=== PATIENT | female | born 1935 | race Caucasian/White ===

== ENCOUNTER 2020-02-08 16:21 | Emergency (ER) | payer MEDICARE, SELFPAY ==
[2020-02-08 16:53] VITALS: BP 160/77; PULSE 105; RESP 18; TEMP 36.2; O2SAT 95; BMI 34.5
--- NOTE | 2020-02-08 17:08 | ED_ITS ---
HPI - Female Genitourinary General: Chief complaint: Urogenital-Female Stated complaint: urination problems Time Seen by Provider: 02/08/20 17:06 Source: patient Mode of arrival: ambulatory Limitations: no limitations History of Present Illness: HPI Narrative: 84-year-old female comes in today with urinary incontinence. Patient states that she has been having difficulty for over 1 week now with urinary incontinence. Patient did recently get out of the hospital yesterday and comes in today due to persistent incontinence. Patient is requesting urinary catheterization to help with her bladder incontinence until she can get up and move around easier. Patient reports she has had to do this before in the past for similar complaints. Patient denies any fever nausea vomiting or other symptoms. Patient appears well. Patient appears in no pain. MD elicited complaint: urinary incontinence Review of Systems General: Reports: 10 or more systems reviewed and unremarkable except in HPI and below : Reports: urinary incontinence Physical Exam Const: COMMON NORMALS: no acute distress and patient oriented x3 GENERAL APPEARANCE: cooperative HENMT: COMMON NORMALS: normocephalic and Normal external nose present HEAD & SCALP: normal to inspection and normocephalic NOSE: Normal external nose present MOUTH: Normal oral and palatal mucosa present Eye: GENERAL EYE: appearance normal, both eyes and all related structures Neck/C-Spine: COMMON NORMALS: full ROM Chest: COMMONS NORMALS: normal inspection of the chest Resp: COMMON NORMALS: normal respiratory effort EFFORT & INSPECTION: Yes able to speak in complete sentences Cardio: COMMON NORMALS: regular rate and regular rhythm RATE: regular rate RHYTHM: regular rhythm GI: COMMON NORMALS: non-tender : COMMON NORMALS: Yes no CVA tenderness BLADDER/KIDNEY EXAM: Yes no CVA tenderness Back/Pelvis: COMMON NORMALS: no CVA tenderness and thoracic and lumbar spine normal to inspection Extremity: COMMON NORMALS: normal to inspection Neuro: COMMON NORMALS: patient oriented x3 and moves all extremities Psych: COMMON NORMALS: mental status grossly normal and cooperative Skin: COMMON NORMALS: no rashes or lesions noted GENERAL SKIN EXAM: no rashes or lesions noted Course Vital Signs: Vital signs: Vital Signs Temperature 97.1 F L 02/08/20 16:53 Pulse Rate 94 02/08/20 17:34 Respiratory Rate 18 02/08/20 17:34 Blood Pressure 158/71 02/08/20 17:34 Pulse Oximetry 94 02/08/20 17:34 MDM - Female MDM Narrative: Medical decision making narrative: Patient comes in today with dysuria and urinary incontinence. Patient reports an inability to control her bladder. Patient is requesting Mujica catheter placement until she is able to get up and around easier for her bladder incontinence. Patient recently got out of the hospital for a mild heart attack . Differential diagnosis includes but not limited to urinary retention, urinary incontinence, urinary tract infection. Urinalysis was clear of infection. Mujica catheter was placed for patient comfort. Patient is to follow-up with primary care in 1 week for bladder training and/or discontinuation of Mujica catheter. Patient agreed to plan and need for follow-up. Lab Data: Labs: Lab Results 02/08/20 Range/Units 17:20 Urine Color Yellow (Yellow) Urine Appearance Sl hazy (CLEAR) Urine pH 5 (5-7) Ur Specific Gravit y 1.005 (1.005-1.030) Urine Protein Neg (Negative) Urine Glucose (UA) 4+ H (Normal) Urine Ketones Negative (Negative) Urine Blood 3+ H (Negative) Urine Nitrate Negative (Negative) Urine Bilirubin Neg (NEGATIVE) Urine Urobilinogen Norm (Negative) mg/dL Ur Leukocyte Leigh Ann ase Negative (Negative) Urine RBC 0-4 H (0-2) /hpf Urine WBC 5-10 H (0-5) /hpf Ur Squamous Epith Cells 15-25 H (0-5) Amorphous Sediment Not Reportable Urine Bacteria Trace (NONE) Hyaline Casts 0-4 H Discharge Plan Discharge Patient Disposition: Home Clinical Impression: Dysuria-frequency syndrome Condition: Stable Prescriptions: No Action atorvastatin 80 mg tablet 80 mg PO DAILY RF: 0 lisinopril 20 mg tablet 20 mg PO DAILY RF: 0 clopidogrel 75 mg tablet 75 mg PO DAILY RF: 0 amlodipine 5 mg tablet 5 mg PO DAILY RF: 0 tramadol 50 mg tablet 50 mg PO TID PRN (Reason: Pain) RF: 0 spironolactone 25 mg tablet 25 mg PO DAILY RF: 0 aspirin 81 mg Tablet,Chewable 81 mg PO DAILY RF: 0 glipizide-metformin 5-500 mg tablet 1 tab PO BID RF: 0 Jardiance 25 mg tablet 25 mg PO DAILY RF: 0 Discharge Orders: Discharge Order (Routine); Ordered 02/08/20 Ordered By: Dev Leggett Referrals: Kimberly Cobos DO [Primary Care Provider] - Discharge Diet: Usual diet Discharge Activity: Increase activity as tolerated Patient Instructions: Mujica Catheter Placement and Care (ED) Activity Restrictions/Additional Instructions: Drink plenty of fluids. Monitor for fever. Follow-up with primary care in 1 week for assistance with bladder training and discontinuation of Mujica catheter. Return to the emergency department for new concerns. Coding Level of Care Code ED Eligibility Services Representative for Perfecto Fwd Exam Comprehensive
[2020-02-08 17:10] VITALS: BP 158/71; PULSE 98; RESP 20; O2SAT 95
[2020-02-08 17:34] VITALS: BP 158/71; PULSE 94; RESP 18; O2SAT 94
[2020-02-08 17:57] LABS: Add Urine Microscopic? YES; Bilirubin Urine Neg (NEGATIVE); Blood Urine 3+ (Negative); Glucose Urine UA 4+ (Normal); Ketones Urine Negative (Negative); Leukocyte Esterase Urine Negative (Negative); Nitrate Urine Negative (Negative); Protein Urine Neg (Negative); Specific Gravity, Urine 1.005 (1.005-1.030); Urine Appearance SL Hazy (CLEAR); Urine Color Yellow (Yellow); Urobilinogen Urine Norm (Negative); pH Urine 5 (5-7)
[2020-02-08 18:03] LABS: Add Urine Culture? No; Bacteria Urine TRACE; Hyaline Casts Urine 0-4; RBC Urine 0-4 /hpf (0-2); Squamous Epithelial Cell Urine 15-25 (0-5)
[2020-02-08 18:25] VITALS: BP 114/64; PULSE 92; RESP 18; O2SAT 95
== END 2020-02-08 18:25 | disposition home or self-care (01) ==
PROVIDERS: Family Medicine; Emergency Provider Nurse Practitioner Family; PCP Family Medicine
DX: R35.0 Frequency of micturition (principal); Z79.02 Long term (current) use of antithrombotics/antiplatelets; Z79.82 Long term (current) use of aspirin; Z79.84 Long term (current) use of oral hypoglycemic drugs
CPT/HCPCS: 12345; 51702; 81001; 99283

== ENCOUNTER 2020-02-15 14:54 | Emergency (ER) | payer MEDICARE, SELFPAY ==
[2020-02-15 14:56] VITALS: BP 152/72; PULSE 92; RESP 16; TEMP 36.8; O2SAT 95; BMI 35.9
--- NOTE | 2020-02-15 15:23 | ED_ITS ---
HPI - Female Genitourinary General: Chief complaint: Skin/Abscess/Foreign Body Stated complaint: RASH/ ITCHING Time Seen by Provider: 02/15/20 14:58 Source: patient Mode of arrival: ambulatory Limitations: no limitations History of Present Illness: HPI Narrative: Patient is an 84-year-old female who presents to ED today with a complaint of genital itching and a rash. Patient was seen here at our facility approximately a week ago due to complaints of urinary incontinence. She had a Booth catheter placed and discharged with recommendations to follow-up with PCP. Patient tells me she has not been able to get into her PCP for further evaluation. She tells me several years ago she had a bladder sling surgery performed. She states every time she gets up my bladder will fall out . Patient feels like this is the source of her urinary incontinence. She is not complaining of abdominal pain, dysuria, changes in color or smell of her urine, nausea/vomiting, or flank pain. Patient states she has been putting hand lotion with aloe vera to her groin and genitals due to the itching. Patient is a diabetic. MD elicited complaint: genital rash and genital itching Pertinent past history: other (urinary incontinence; recent booth placement ) Associated symptoms: Deny abdominal pain or nausea Review of Systems GI: Denies: abdominal pain, nausea, vomiting or diarrhea : Reports: urinary incontinence (booth cath present ), genital pruritis and other (genital rash); Denies: flank pain Skin/Breast: Reports: rash Physical Exam Const: COMMON NORMALS: no acute distress, patient oriented x3, no limitations and alert NUTRITIONAL APPEARANCE: obese morbidly obese GI: COMMON NORMALS: Normal to inspection, nondistended, normoactive bowel sounds present, Soft to palpation, non-tender, No hepatosplenomegaly present and no masses PALPATION: Yes Soft to palpation and Yes No hepatosplenomegaly present : COMMON NORMALS: Yes no CVA tenderness BLADDER/KIDNEY EXAM: Yes no CVA tenderness EXTERNAL FEMALE EXAM: Yes normal appearance of the urethra and Yes other (booth in place and draining adequately; see below ) OTHER: pt has wh ite discharge present in inguinal folds and around urethral meatus; she states she has been putting hand cream with aloe vera to the area due to itching; I do not appreciate much of a rash or erythema to the area Back/Pelvis: COMMON NORMALS: no CVA tenderness Neuro: COMMON NORMALS: patient oriented x3 SENSORIUM/ORIENTATION: Yes alert Course Vital Signs: Vital signs: Vital Signs Temperature 98.3 F 02/15/20 14:56 Pulse Rate 90 02/15/20 17:46 Respiratory Rate 18 02/15/20 17:46 Blood Pressure 128/78 02/15/20 17:46 Pulse Oximetry 95 02/15/20 17:46 MDM - Female MDM Narrative: Medical decision making narrative: Patient most likely has developed candidal infection given her already existing risk factors of obesity and diabetes. She has also been keeping area very moist by applying hand creams with aloe vera. She does not complain of UTI like symptoms. UA here contaminated but will attempt culture. Vitals are stable. She was originally referred to PCP for re-evaluation but I don't feel they will be able to do much regarding evaluation for her urinary incontinence. We will refer her to [facility]ELOP[facility] so they can evaluate her especially regarding a possible bladder prolapse. Will place patient on nystain powder, discussed keeing area as dry as possible, and will write her for a diflucan tablet. She may follow up with PCP in the meantime until she can get into her [facility]ELOP[facility] appointment. Lab Data: Labs: Lab Results 02/15/20 02/15/20 02/15/20 Range/Units 16:10 16:10 16:20 WBC 7.3 (4.0-10.0) 10^3/ uL RBC 3.86 L (4.1-5.3) 10^6/u L Hgb 12.8 (11.5-15.3) g/dL Hct 39.0 (37.0-47.0) % MCV 101.0 H (81-99) fL MCH 33.2 (28.0-34.0) pg MCHC 32.8 (30.0-36.0) g/dL RDW 13.1 (12.1-15.1) % Plt Count 271 (130-400) 10^3/c mm MPV 10.1 (7.4-10.4) fL Neut % (Auto) 64.4 % Lymph % (Auto) 23.1 % Ferry % (Auto) 7.8 % Eos % (Auto) 3.7 % Baso % (Auto) 0.7 % Neut # (Auto) 4.69 (1.8-7.7) 10^3/u L Lymph # (Auto) 1.7 (0.8-4.8) 10^3/u L Ferry # (Auto) 0.6 (0.2-0.9) 10^3/u L Eos # (Auto) 0.3 (0.0-0.8) 10^3/u L Baso # (Auto) 0.1 (0.0-0.1) 10^3/u L Nucleated RBC % (a uto) 0 % Nucleated RBCs # 0.0 /100WBC Sodium 137 (136-145) mmol/L Potassium 4.8 (3.5-5.1) mmol/L Chloride 103 (98-107) mmol/L Carbon Dioxide 24 (22-29) mmol/L Anion Gap 14.8 (5-19) BUN 14 (8-23) mg/dL Creatinine 1.0 H (0.5-0.9) mg/dL GFR Calculation Not Reportable Glucose 185 H (65-115) mg/dL Calculated Osmolal ity 285 (285-295) mOsm/k g Calcium 9.5 (8.5-10.5) mg/dL Total Bilirubin 0.4 (0.15-1.2) mg/dL AST 12 (0-32) U/L ALT 10 (0-33) U/L Alkaline Phosphata se 97 (35-105) IU/L Total Protein 6.6 (6.6-8.7) g/dL Albumin 3.5 (3.5-5.2) g/dL Globulin 3.1 (1.3-4.6) g/dL Urine Color Yellow (Yellow) Urine Appearance Clear (CLEAR) Urine pH 7 (5-7) Ur Specific Gravit y 1.005 (1.005-1.030) Urine Protein Neg (Negative) Urine Glucose (UA) 4+ H (Normal) Urine Ketones Negative (Negative) Urine Blood 2+ H (Negative) Urine Nitrate Negative (Negative) Urine Bilirubin Neg (NEGATIVE) Urine Urobilinogen Norm (Negative) mg/dL Ur Leukocyte Leigh Ann ase Trace H (Negative) Urine RBC 15-25 H (0-2) /hpf Urine WBC 5-10 H (0-5) /hpf Ur Squamous Epith Cells 0-4 H (0-5) Amorphous Sediment Not Reportable Urine Bacteria 2+ H (NONE) Discharge Plan Discharge Patient Disposition: Home Clinical Impression: Vulvovaginal candidiasis Urinary incontinence Qualifiers: Urinary Incontinence type: unspecified incontinence Qualified Code(s): R32 - Unspecified urinary incontinence Condition: Stable Prescriptions: New Diflucan 150 mg tablet 150 mg PO DAILY Qty: 1 RF: 0 nystatin 100,000 unit/gram powder 1 applic TOPICAL BID Qty: 60 RF: 0 No Action atorvastatin 80 mg tablet 80 mg PO DAILY RF: 0 lisinopril 20 mg tablet 20 mg PO DAILY RF: 0 clopidogrel 75 mg tablet 75 mg PO DAILY RF: 0 amlodipine 5 mg tablet 5 mg PO DAILY RF: 0 tramadol 50 mg tablet 50 mg PO TID PRN (Reason: Pain) RF: 0 spironolactone 25 mg tablet 25 mg PO DAILY RF: 0 aspirin 81 mg Tablet,Chewable 81 mg PO DAILY RF: 0 glipizide-metformin 5-500 mg tablet 1 tab PO BID RF: 0 Jardiance 25 mg tablet 25 mg PO DAILY RF: 0 Discharge Orders: Discharge Order (Routine); Ordered 02/15/20 Ordered By: Nemo Poe Referrals: Kimberly Cobos DO [Primary Care Provider] - Activity Restrictions/Additional Instructions: Stop putting hand lotion to affected area. Begin keeping area extremely clean and dry-this may require you to place clean/dry wash rags to groin creases to help. Apply the nystatin powder twice daily to help keep area dry. We will refer you to gynecology for evaluation of your possible bladder prolapse. Discharge Date/Time: 02/15/20 18:01 Coding Level of Care Code ED All Source Analyst for Chg Fwd Exam Expanded Problem Focused
[2020-02-15 16:20] LABS: Basophils # 0.1 10^3/uL (0.0-0.1); Basophils % 0.7 %; Eosinophils # 0.3 10^3/uL (0.0-0.8); Eosinophils % 3.7 %; Hemoglobin 12.8 g/dL (11.5-15.3); Lymphocytes # 1.7 10^3/uL (0.8-4.8); Lymphocytes % 23.1 %; Mean Corpuscular HGB Conc 32.8 g/dL (30.0-36.0); Mean Corpuscular Hemoglobin 33.2 pg (28.0-34.0); Mean Platelet Volume 10.1 fL (7.4-10.4); Monocytes # 0.6 10^3/uL (0.2-0.9); Monocytes % 7.8 %; Neutrophils # 4.69 10^3/uL (1.8-7.7); Neutrophils % 64.4 %; Nucleated Red Blood Cells % 0 %; Platelet Count 271 10^3/cmm (130-400); Red Blood Count 3.86 10^6/uL (4.1-5.3); Red Cell Distribution Width 13.1 % (12.1-15.1); White Blood Count 7.3 10^3/uL (4.0-10.0)
[2020-02-15 16:43] LABS: Alanine Aminotransferase 10 U/L (0-33); Albumin Level 3.5 g/dL (3.5-5.2); Alkaline Phosphatase 97 IU/L (35-105); Anion Gap 14.8 (5-19); Aspartate Amino Transferase 12 U/L (0-32); Blood Urea Nitrogen 14 mg/dL (8-23); Calcium 9.5 mg/dL (8.5-10.5); Carbon Dioxide 24 mmol/L (22-29); Chloride 103 mmol/L (98-107); Globulin 3.1 g/dL (1.3-4.6); Glucose 185 mg/dL (65-115); Osmolality Calculated 285 mOsm/kg (285-295); Potassium 4.8 mmol/L (3.5-5.1); Sodium 137 mmol/L (136-145); Total Bilirubin 0.4 mg/dL (0.15-1.2); Total Protein 6.6 g/dL (6.6-8.7)
[2020-02-15 16:58] LABS: Add Urine Microscopic? YES; Bilirubin Urine Neg (NEGATIVE); Blood Urine 2+ (Negative); Glucose Urine UA 4+ (Normal); Ketones Urine Negative (Negative); Leukocyte Esterase Urine Trace (Negative); Nitrate Urine Negative (Negative); Protein Urine Neg (Negative); Specific Gravity, Urine 1.005 (1.005-1.030); Urine Appearance Clear (CLEAR); Urine Color Yellow (Yellow); Urobilinogen Urine Norm (Negative); pH Urine 7 (5-7)
[2020-02-15 16:59] LABS: RBC Urine 15-25 /hpf (0-2)
[2020-02-15 17:00] LABS: Add Urine Culture? Yes; Bacteria Urine 2+; Squamous Epithelial Cell Urine 0-4 (0-5)
[2020-02-15 17:46] VITALS: BP 128/78; PULSE 90; RESP 18; O2SAT 95
== END 2020-02-15 18:01 | disposition home or self-care (01) ==
PROVIDERS: Emergency Provider Physician Assistant; PCP Family Medicine
DX: B37.3 Candidiasis of vulva and vagina (principal); R32 Unspecified urinary incontinence; Z79.02 Long term (current) use of antithrombotics/antiplatelets; Z79.82 Long term (current) use of aspirin; Z79.84 Long term (current) use of oral hypoglycemic drugs
CPT/HCPCS: 12345; 36415; 80053; 81001; 85025; 87077; 87086; 87186; 99282

== ENCOUNTER → 2022-04-13 12:10 | Outpatient (BNVA) | payer MEDICARE, SELFPAY | PROVIDERS: PCP Family Medicine; Referring Provider Nurse Practitioner Family; Visit Provider Podiatrist Foot & Ankle Surgery | DX: I73.9 Peripheral vascular disease, unspecified (principal); L89.620 Pressure ulcer of left heel, unstageable; I89.0 Lymphedema, not elsewhere classified; L03.116 Cellulitis of left lower limb | CPT/HCPCS: 99203 ==

== ENCOUNTER → 2022-05-12 12:23 | Outpatient (BNVA) | payer MEDICARE, SELFPAY | PROVIDERS: PCP Family Medicine; Visit Provider Podiatrist Foot & Ankle Surgery | DX: I73.9 Peripheral vascular disease, unspecified (principal); L89.620 Pressure ulcer of left heel, unstageable; L03.116 Cellulitis of left lower limb; I89.0 Lymphedema, not elsewhere classified; L89.610 Pressure ulcer of right heel, unstageable; Z79.84 Long term (current) use of oral hypoglycemic drugs | CPT/HCPCS: 99213 ==